=== PATIENT | male | born 1995 | race Caucasian/White ===

== ENCOUNTER → 2018-06-02 15:12 | Outpatient (CLI) | payer BC, SELFPAY ==
--- NOTE | 2018-06-02 15:20 | XR_ITS ---
XR KUB HISTORY: ITS.REASON: ABD PAIN ORDERING PHYSICIAN: Gerry Fam MD PATIENT AGE: 22 years COMPARISON: None FINDINGS: There is a mild amount of retained colonic feces. No acute bony anomalies or renal calculi evident. A small calcific density is present in the right lower pelvic region and may be due to phlebolith at 2 mm. IMPRESSION: Mild constipation
== END ==
PROVIDERS: PCP Family Medicine; Visit Provider Family Medicine
DX: R10.31 Right lower quadrant pain (principal)
CPT/HCPCS: 74018

== ENCOUNTER → 2021-03-22 16:09 | Outpatient (CLI) | payer BC, SELFPAY | PROVIDERS: PCP Family Medicine; Visit Provider Nurse Practitioner | DX: Z20.822 Contact with and (suspected) exposure to COVID-19 (principal) | CPT/HCPCS: C9803; U0003; U0005 ==